=== PATIENT | male | born 1980 | race Caucasian/White ===

== ENCOUNTER 2017-11-28 11:39 | Day surgery (SDC) | payer BC ==
[2017-11-28] MEDS ORDERED: PROPOFOL 40 ML (13:48)
[2017-11-28] MEDS ORDERED: LIDOCAINE 2% (SDV) 5 ML INJ (13:48)
[2017-11-28] MEDS ORDERED: hydrALAzine 20 MG INJ (14:03)
== END 2017-11-28 16:05 | disposition home or self-care (01) ==
LOC: GIL 11:39
DX: K21.0 Gastro-esophageal reflux disease with esophagitis (principal); Z79.01 Long term (current) use of anticoagulants; Z86.73 Personal history of transient ischemic attack (TIA), and cerebral infarction without residual deficits; I10 Essential (primary) hypertension
CPT/HCPCS: 43235